=== PATIENT | male | born 1990 | race Caucasian/White ===

== ENCOUNTER → 2022-06-13 01:38 | Outpatient (CLI) | payer MEDICAID, SELFPAY ==
--- NOTE | 2022-06-13 | DI.US_ITS ---
Exam(s) US SCROTUM EXAM: US SCROTUM CLINICAL HISTORY: PAINLESS LUMP RT TESTICLE, N50.89 TECHNIQUE: Ultrasound of the testes performed using grayscale, color, and Doppler imaging. COMPARISON: No exams were available for comparison FINDINGS: RIGHT HEMISCROTUM: The right testicle exhibits normal size and echo architecture and exhibits normal arterial waveforms. There is an eccentric 3 x 2 millimeter cyst which appears interposed between the testicular parenchym a and overlying capsule. No other test thick low findings. There is a small ipsilateral epididymal head cyst-spermatocele which measures 3 x 4 millimeters. There is no ipsilateral hydrocele nor varicocele. LEFT HEMISCROTUM: The left testicle exhibits normal size and echo architecture with no evidence of intratesticular mass . Vascular flow is demonstrated within the left testicle, including arterial waveforms. The epididymis appears unremarkable. There are no epididymal head cysts. There is no ipsilateral hydrocele or varicocele. IMPRESSION: 1. No solid testicular masses evident. There is, however, an eccentric 3 x 2 millimeter cyst which a ppears interposed between the upper aspect of the right testicle and the overlying capsule. Recommen d follow-up ultrasound in 6 months to ensure stability. No other testicular findings and no evidence of torsion. 2. Small benign spermatocele in the right epididymal head noted which measures 3 x 4 millimeters. 3. No hydroceles or varicoceles evident. DATA REPOSITORY:
== END ==
PROVIDERS: PCP Family Medicine; Visit Provider Nurse Practitioner Family
DX: N43.41 Spermatocele of epididymis, single (principal)
CPT/HCPCS: 76870

== ENCOUNTER 2023-07-05 10:53 | Emergency (ER) | payer MEDICAID, SELFPAY ==
--- NOTE | 2023-07-05 10:45 | RT.EKG_ITS ---
APPROVED REPORT Exam: Resting ECG Reason for Exam: Chest pain Patient Location: E HR:83 bpm ECG Measurements Heart Rate 83 AXIS SC 136 P 80 QRSd 85 QRS 84 QT 354 T 32 QTc 415 Conclusion Sinus rhythm...normal P axis, V-rate 60- 99 Right atrial enlargement...P>0.25mV 2 lds or<-0.24mV aVR/aVL Phsician: no stemi
[2023-07-05 11:03] VITALS: BP 149/71; PULSE 81; RESP 18; TEMP 37.2; O2SAT 98
--- NOTE | 2023-07-05 11:24 | ED.GENADUL_ITS ---
Discharge Plan Disposition Patient Disposition: Home Condition: Stable Discharge Details Clinical Impression: Chest pain of uncertain etiology Primary Care Provider: Vlad Lugo ED Provider: Sidney Jolly Home Meds and New Rx's Prescriptions: No Action No Known Home Meds Discharge Instructions Instructions: Pleurisy (ED), Costochondritis (ED) Additional Instructions: You were seen in the emergency department for your brief chest pains last night at 0 200 that woke you from sleep lasting 20 to 30 seconds, this is not consistent with any kind of cardiac pain, you could have costochondritis or pleurisy. Please talk with your primary care provider about obtaining baseline cardiology studies. There is no signs of damage to your heart and you are un likely to have a blood clot in your lungs. Please try anti-inflammatories, ibuprofen or Aleve or topical anti-inflammatory like Voltaren gel applied to the area of pain. Please return to the emergency department for any emergent concerns Referrals: Vlad Lugo [Primary Care Provider] - Medical Decision Making This dictation utilizes [id number] dictation software and may contain unedited grammatical errors. 33 y/o M presents to ED today with a chief complaint of brief sharp chest pains last night around 0200, lasting 20-30 seconds, none since, no cardiac history, no recent URI symptoms. Patient has relevant history of none- otherwise healthy. Family and social history: noncontributory. Pertinent exam findings / vital signs include benign cardiopulmonary exam, stable vitals, no acute distress. Differential / pathologies of concern include costochondritis, pleurisy, anxiety, NOT ACS, NOT PE. Diagnostic studies of: -Trop I, EKG, CXR, CBC/CMP. -Trop I negative -CXR benign -EKG benign-P waves followed by narrow complex QRS with normal axis, good R wave progression without ST changes, normal QT QTc, multifocal P waves -PERC negative, no D-dimer -LOW Heart Score Interventions of: -none. ED Course: Counseled the patient on likely costochondritis versus pleurisy, recommend he follow-up with an outpatient visit to his primary care provider for possible baseline cardiology studies of echocardiogram and treadmill stress test. Counseled the patient on topical NSAIDs versus oral APAP NSAIDs for costochondritis. Possible element anxiety. Findings not consistent with PE, ACS, PNA. Disposition of Chest Pain of Uncertain Etiology. Assessment/Plan: Counseled the patient to trial anti-inflammatories for possible costochondritis and follow-up with his primary care provider, low heart score makes it reasonable to follow-up outpatient. Patient verbalized understanding of the plan and return to ED criteria and engaged in shared decision making. Imaging Data Radiologic Study: Imaging: X-Ray Radiologist's impression: XR CHEST 2V PA LATERAL EXAM: XR CHEST 2V PA LATERAL CLINICAL HISTORY: chest pain. TECHNIQUE: 2D digital imaging was performed. COMPARISON: No exams were available for comparison FINDINGS: 2 views: Heart size is normal. The mediastinum is not widened. No infiltrates nor pleural effusions. No pneumothorax. Oval density in the right suprahilar region has benign appearance and is possibly vessel visualized and-on. No fractures evident. IMPRESSION: No acute pulmonary findings. Right suprahilar density which is possibly just a pulmonary vessel visualized and on but comparison to prior outside images would be helpful for comparison. Lab Data Labs: Laboratory Tests Range/Units 07/05/23 12:24 WBC (4.4-10.8) 10^3/uL 7.70 RBC (4.36-5.78) 10^6/uL 5.00 Hgb (13.5-17.5) g/dL 15.2 Hct (40.0-50.0) % 44.3 MCV (80-95) fL 89 MCH (27.0-33.0) pg 30.4 MCHC (32.0-36.0) % 34.3 RDW (11.8-14.1) % 12.2 Plt Count (130-400) 10^3/uL 273 MPV (8.0-11.0) fL 9.7 Immature Gran % 0.4 Neutrophils % 57.1 Lymphocytes % 27.9 Monocytes % 8.2 Eosinophils % 5.6 Basophils % 0.8 Nucleated RBC % (0.0-0.3) % 0.0 Absolute Neutrophils (1.2-6.7) 10^3/uL 4.40 Absolute Lymphocytes (1.2-3.4) 10^3/uL 2.15 Absolute Monocytes (0.1-0.8) 10^3/uL 0.63 Absolute Eosinophils (0.0-0.7) 10^3/uL 0.43 Absolute Basophils (0.0-0.2) 10^3/uL 0.06 Sodium (136-145) mmol/L 140 Potassium (3.5-5.1) mmol/L 4.1 Chloride (98-107) mmol/L 105 Carbon Dioxide (21.0-32.0) mmol/L 30.5 Anion Gap (3-11) mmol/L 4.5 BUN (7-18) mg/dL 11 Creatinine (0.70-1.30) mg/dL 0.8 Est GFR (CKD-EPI 2020) (mL/min/1.73m2) 120.59 Glucose (74-106) mg/dL 120 H Calcium (8.5-10.1) mg/dL 9.3 Total Bilirubin (0.2-1.0) mg/dL 0.2 AST (15-37) U/L 18 ALT (16-63) U/L 38 Alkaline Phosphatase (46-116) U/L 92 Troponin I (<or=60) ng/L < 50 Total Protein (6.4-8.2) g/dL 7.3 Albumin (3.4-5.0) g/dL 3.8 HPI General Date/Time Provider Initiated Documentation: 07/05/23 11:23 . HPI Narrative: 33 year-old male presents to ED today by POV/ambulating with a chief complaint of brief 20-30 second sharp chest pains last night in L upper chest that awoke him from sleep with onset around 0200. Quality described as sharp, worse with deep inspiration, no radiation to fever, cough, hemoptysis, continued chest pain, shortness of breath with exertion, dizziness, visual changes. Severity is described as 5-6/10. Palliating factors include nothing specific attempted. Provoking factors include nothing specific. Events leading up to the incident/Associated Symptoms: Patient denies FHx of early onset cardiac disease. Patient not anticoagulated. Related Data Home Medications Medication Instructions Recorded Confirmed Unknown [No Known Home Meds] 07/05/23 07/05/23 Allergies Allergy/AdvReac Type Severity Reaction Status Date / Time No Known Allergies Allergy Unverified 07/05/23 11:09 General Stated Complaint: Chest Pain THAO: 3 Review of Systems All systems reviewed & are unremarkable except as noted in HPI and below PFSH All Active Problems (Updated 07/05/23 @ 13:15 by GILBERTO Payne) Chest pain of uncertain etiology (Acute) Social History Smoking risk assessment performed?: No Exam Narrative Exam Narrative: GENERAL APPEARANCE: Well-nourished, non-toxic, awake and alert, atraumatic, no acute distress. SKIN: Warm, pink, dry, intact, without rashes/lesions/ulcerations. HEAD: Normocephalic, atraumatic, normal hair distribution for gender/age. EYES: Pupils PERRLA, EOMs intact without nystagmus, normal conjunctiva, no exudates on lids/lashes. ENT: Nares patent, no circumoral cyanosis, no facial swelling NECK: Supple, trachea midline, painless cervical ROM. LUNGS/CHEST: Lungs CTA bilaterally- no rhonchi/rales/wheezes diffusely, non- labored respirations, normal A/P diameter, symmetrical expansion, no chest wall deformity HEART (CV/PV): Regular rate and rhythm without murmur, no peripheral edema, no JVD. ABDOMEN: Soft, non-distended, no guarding, no tenderness. MSK: Normal ROM, no swelling/deformity to bilateral UEs or LEs, moving all extremities without weakness, no cyanosis, spine midline without tenderness, normal curvature. NEURO: Mental Status AAOx4 - alert to person, place, time, events No facial droop, no forehead involvement. Motor: No focal weakness - strength 5/5 in bilateral UEs and LEs, proximal and distal, symmetric. Sensory: sensation intact to light touch globally. Gait normal: patient ambulated without ataxia into ED room. PSYCH: euthymic, cooperative, pleasant, appropriate speech Course Vital Signs Vital signs: Vital Signs Temperature 37.2 C 07/05/23 11:03 Pulse 81 07/05/23 11:03 Respiratory Rate 18 07/05/23 11:03 Blood Pressure 149/71 H 07/05/23 11:03 Pulse Oximetry 98 07/05/23 11:03 Temperature 37.2 C 07/05/23 11:03 Temperature Source Oral 07/05/23 11:03 Pulse 81 07/05/23 11:03 Respiratory Rate 18 07/05/23 11:03 Blood Pressure 149/71 H 07/05/23 11:03 Blood Pressure Position Sitting 07/05/23 11:03 Pulse Oximetry 98 07/05/23 11:03 Oxygen Delivery Method Room Air 07/05/23 11:03 Oxygen Flow Rate 0 07/05/23 11:03 Pain Level 0 07/05/23 11:03
[2023-07-05 12:22] VITALS: PULSE 77; RESP 14; O2SAT 99
[2023-07-05 12:30] VITALS: PULSE 69; RESP 15; O2SAT 97
[2023-07-05 12:30] LABS: Abs Immature Grans 0.03 10^3/uL (0.0-0.06); Absolute Basophil Count 0.06 10^3/uL (0.0-0.2); Absolute Eosinophil Count 0.43 10^3/uL (0.0-0.7); Absolute Lymphocyte Count 2.15 10^3/uL (1.2-3.4); Absolute Monocyte Count 0.63 10^3/uL (0.1-0.8); Basophils % 0.8; Eosinophils % 5.6; HCT 44.3 % (40.0-50.0); HGB 15.2 g/dL (13.5-17.5); Immature Grans % 0.4; Lymphocytes % 27.9; MCH 30.4 pg (27.0-33.0); MCHC 34.3 % (32.0-36.0); MCV 89 fL (80-95); MPV 9.7 fL (8.0-11.0); Monocytes % 8.2; Neutrophils % 57.1; Platelet Count 273 10^3/uL (130-400); RDW 12.2 % (11.8-14.1)
[2023-07-05 12:40] VITALS: PULSE 69; RESP 21; O2SAT 96
[2023-07-05 12:46] LABS: ALT 38 U/L (16-63); AST 18 U/L (15-37); Albumin 3.8 g/dL (3.4-5.0); Alkaline Phosphatase 92 U/L (46-116); Anion Gap 4.5 mmol/L (3-11); BUN 11 mg/dL (7-18); Bilirubin, Total 0.2 mg/dL (0.2-1.0); CO2 30.5 mmol/L (21.0-32.0); CREATININE 0.8 mg/dL (0.70-1.30); Calcium 9.3 mg/dL (8.5-10.1); Chloride 105 mmol/L (98-107); Estimated GFR 120.59 (mL/min/1.73m2); Glucose 120 mg/dL (74-106); Potassium 4.1 mmol/L (3.5-5.1); Sodium 140 mmol/L (136-145); Total Protein 7.3 g/dL (6.4-8.2)
[2023-07-05 12:47] LABS: Troponin I < 50 ng/L (<or=60)
--- NOTE | 2023-07-05 12:50 | DI.RAD_ITS ---
Exam(s) XR CHEST 2V PA LATERAL EXAM: XR CHEST 2V PA LATERAL CLINICAL HISTORY: chest pain. TECHNIQUE: 2D digital imaging was performed. COMPARISON: No exams were available for comparison FINDINGS: 2 views: Heart size is normal. The mediastinum is not widened. No infiltrates nor pleural effusions. No pneumothorax. Oval density in the right suprahilar region has benign appearance and is possibly vessel visualized and-on. No fractures evident. IMPRESSION: No acute pulmonary findings. Right suprahilar density which is possibly just a pulmonary vessel visualized and on but comparison t o prior outside images would be helpful for comparison. DATA REPOSITORY: RADIATION DOSE DELIVERED:
== END 2023-07-05 13:23 | disposition home or self-care (01) ==
PROVIDERS: Emergency Provider Physician Assistant; PCP Family Medicine
DX: R07.9 Chest pain, unspecified (principal)
CPT/HCPCS: 80053; 93005; 99283; 71046; 84484; 85025; 93010

== ENCOUNTER → 2023-12-14 14:35 | Outpatient (REF) | payer MEDICAID, SELFPAY ==
--- NOTE | 2023-12-14 | DI.RAD_ITS ---
Exam(s) XR HAND RT COMPLETE EXAM: XR HAND RT COMPLETE CLINICAL HISTORY: cellulitis of dorsum hand right ?FB. TECHNIQUE: 2D digital imaging was performed. Three views. COMPARISON: No exams were available for comparison FINDINGS: BONES: No acute fracture is present. No bony destructive lesion is seen. JOINTS: No dislocation present. SOFT TISSUE: Swelling of 3rd finger. No foreign body. No abnormal soft tissue air. IMPRESSION: Third finger swelling. No foreign body. DATA REPOSITORY: RADIATION DOSE DELIVERED:
--- NOTE | 2023-12-14 15:37 | DI.VRAD_ITS ---
PROCEDURE INFORMATION: Exam: XR Right Hand Exam date and time: 12/14/2023 2:48 PM Age: 33 years old Clinical indication: Patient HX: Cellulitis of dorsum hand right ? fb. Laceration on 3rd finger right hand 2 days ago overlayingpip joint with increased swelling. Concerned for fb or possible joint infection TECHNIQUE: Imaging protocol: Radiologic exam of the right hand. Views: 3 or more views. COMPARISON: No relevant prior studies available. FINDINGS: Bones/joints: No acute fracture or dislocation. No osseous erosion. Soft tissues: No radiopaque foreign body. IMPRESSION: No radiopaque foreign body. Dictated and Authenticated by: Radha Flores MD. Ordering:CHLOE Rey MD
== END ==
LOC: DI 14:35
PROVIDERS: PCP Family Medicine; Visit Provider Student in an Organized Health Care Education/Training Program
DX: R22.31 Localized swelling, mass and lump, right upper limb (principal)
CPT/HCPCS: 73130